=== PATIENT | male | born 1965 | race Caucasian/White ===

== ENCOUNTER 2020-12-19 19:44 | Emergency (ER) | payer OTHER ==
[~2020-12-19] VITALS: Ht 188 cm; Wt 131.5 kg
[2020-12-19 20:00] VITALS: BP_SYST 161
--- NOTE | 2020-12-19 20:00 | NUR ---
Patient to ER bed 3 to gown for evaluation. Side rails up. Report given to Helen.
--- NOTE | 2020-12-19 20:08 | NUR ---
ER at bedside examining patient.
--- NOTE | 2020-12-19 20:10 | NUR ---
Pt presents to ER c/o of R flank pain. Pt states visiting his PCP and was given flexeril which has provided no relief. Pt reports pain 08/02. No known allergies. Pt states taking flexeril w/ ibuprofen. Denies trauma. Denies n/v/d, urinary discomfort, CP, fevers, headache, chills. Hx of HTN.
[2020-12-19] MEDS ORDERED: CYCL-10 PO ×2 (20:24)
[2020-12-19] MEDS ORDERED: LISI10TA5 PO (20:25)
[2020-12-19] MEDS ORDERED: IBUP-1969 PO (20:25)
--- NOTE | 2020-12-19 20:25 | NUR ---
Pt taken to CT scan via wheelchair accompained by Amber
[2020-12-19] MEDS ORDERED: KETOROLAC TROMETHAMINE 60 MG/2 ML VIAL IM ONE (20:30)
--- NOTE | 2020-12-19 20:37 | NUR ---
Pt returned from CT scan via wheelchair. No acute concerns.
[2020-12-19 21:01] LABS: BILIRUBIN,URINE NEGATIVE (NEGATIVE); BLOOD, URINE NEGATIVE (NEGATIVE); CLARITY/URINE CLEAR (CLEAR); COLOR,URINE YELLOW (YELLOW); GLUCOSE,URINE NEGATIVE (NEGATIVE); KETONES,URINE NEGATIVE (NEGATIVE); LEUKOCYTE ESTERASE ,URINE NEGATIVE (NEGATIVE); NITRITE, URINE NEGATIVE (NEGATIVE); PROTEIN URINE NEGATIVE (NEGATIVE); UROBILINOGEN,URINE 0.2 (0.2-1.0)
[2020-12-19 21:18] LABS: BASOPHILS # (AUTO) 0.1 K/uL (0.0-0.2); BASOPHILS % (AUTO) 0.7 % (0.0-2.0); EOSINOPHILS # (AUTO) 0.2 K/uL (0.0-0.4); EOSINOPHILS % (AUTO) 2.7 % (0.0-4.0); HEMATOCRIT 45.4 % (36-54); HEMOGLOBIN 15.4 g/dL (14.0-18.0); LYMPHOCYTES # (AUTO) 1.7 K/uL (1.0-5.5); LYMPHOCYTES % (AUTO) 22.9 % (20.5-51.5); MEAN CORPUSCULAR HEMOGLOBIN 31 pg (27-31); MEAN CORPUSCULAR HGB CONC 34 % (32-36); MEAN CORPUSCULAR VOLUME 91 fL (79.0-98.0); MONOCYTES # (AUTO) 0.6 K/uL (0.0-1.0); MONOCYTES % (AUTO) 8.1 % (1.7-9.3); NEUTROPHILS # (AUTO) 4.7 K/uL (1.8-7.7); NEUTROPHILS % (AUTO) 65.6 % (40.0-70.0); PLATELET COUNT (AUTO) 239 K/uL (130-430); RED BLOOD CELL COUNT(AUTO) 4.99 MIL/uL (4.2-6.2); RED CELL DISTRIBUTION WIDTH 12.9 % (9.0-15.0); WHITE BLOOD COUNT (AUTO) 7.2 K/uL (4.8-10.8)
[2020-12-19 21:26] LABS: PROTHROMBIN TIME 9.9 SECS (9.5-12.5)
[2020-12-19 21:38] LABS: ALBUMIN 3.9 g/dL (3.4-4.8); CALCIUM 9.3 mg/dL (8.4-11.0); CREATININE 1.13 mg/dL (0.55-1.30); POTASSIUM 4.5 mmol/L (3.5-5.1); TOTAL BILIRUBIN 0.3 mg/dL (0.0-1.0)
[2020-12-19] MEDS ORDERED: HYDR-4272 PO (21:45)
[2020-12-19] MEDS ORDERED: IBUP-1971 PO (21:45)
[2020-12-19 22:12] VITALS: BP_SYST 161
--- NOTE | 2020-12-19 22:12 | NUR ---
Patient given written and verbal discharge instructions and verbalizes understanding. ER MD discussed with patient the results and treatment provided. Patient in stable condition. ID arm band removed. Rx of norco and iburpofen given. Patient educated on pain management and to follow up with PMD. Opportunity for questions provided and answered. Medication side effect fact sheet provided.
== END 2020-12-19 22:12 | disposition home or self-care (01) ==
LOC: SED 19:44
DX: R10.9 Unspecified abdominal pain (principal)
CPT/HCPCS: 36415; 74176; 76376; 80053; 81003; 82150; 83605; 83690; 85025; 85610; 85730; 96372; 99284; J1885